=== PATIENT | female | born 1995 | race Caucasian/White ===

== ENCOUNTER 2017-06-15 13:16 | Day surgery (SDC) | payer OTHER ==
[~2017-06-15 13:16] MED LIST: CEFAZOLIN 2 GM/D5W RTU 2 GM/50 ML RTUPB IV PRN; DEXAMETHASONE SOD PHOSPHATE INJ 4 MG/1 ML VIAL ONE; LACTATED RINGERS 1000 ML IV PRN; LIDOCAINE 0.5% INJ-PF (5 MG/ML) 50 ML SDV SUBCUT PRN; LIDOCAINE 2% INJ-PF (20 MG/ML) 2 ML AMPUL ONE; ONDANSETRON HCL INJ/PF 4 MG/2 ML SDV ONE; SUCCINYLCHOLINE CHLORIDE INJ 200 MG/10 ML VIAL ONE
[2017-06-15] MEDS ORDERED: PROPOFOL INJ 200 MG/20 ML VIAL IV ONE (14:52)
[2017-06-15] MEDS ORDERED: MIDAZOLAM 2 MG/2 ML INJ ONE (14:52)
[2017-06-15] MEDS ORDERED: FENTANYL CITRATE INJ/PF 100 MCG/2 ML AMPUL ONE ×2 (14:52→17:56)
[2017-06-15] MEDS ORDERED: IBUPROFEN INJ 800 MG/8 ML VIAL IV ONE (14:53)
[2017-06-15] MEDS ORDERED: ACETAMINOPHEN 100 ML IV ONE (14:53)
[2017-06-15] MEDS ORDERED: MORPHINE SULFATE 10 MG/ML INJ IV PRN (15:49)
[2017-06-15] MEDS ORDERED: DIPHENHYDRAMINE HCL 50 MG/ML VIAL IV PRN (15:49)
[2017-06-15] MEDS ORDERED: PROMETHAZINE HCL INJ 25 MG/1 ML VIAL IV PRN (15:49)
[2017-06-15] MEDS ORDERED: MEPERIDINE HCL/PF INJ 25 MG/1 ML DISP.SYRIN IV PRN (15:49)
[2017-06-15] MEDS ORDERED: FENTANYL CITRATE INJ/PF 100 MCG/2 ML AMPUL IV PRN ×3 (15:49)
[2017-06-15] MEDS ORDERED: HYDROMORPHONE HCL INJ/PF 2 MG/ML AMPULE ONE (16:09)
[2017-06-15] MEDS ORDERED: BUPIVACAINE HCL 0.5 % INJ/PF 30 ML SDV ONE (17:17)
[2017-06-15] MEDS ORDERED: OXYCODONE-ACETAMINOPHEN 5-325 MG TABLET PO PRN (17:23)
[2017-06-15] MEDS ORDERED: ONDANSETRON HCL INJ/PF 4 MG/2 ML SDV IV PRN (17:23)
[2017-06-15] MEDS ORDERED: HYDROMORPHONE HCL INJ/PF 2 MG/ML AMPULE IV PRN (17:23)
--- NOTE | 2017-06-15 17:23 | PDOC DISCHARGE SUMMARY ---
Discharge Summary (SDC) - Discharge Final Diagnosis: Right elbow ulnar collateral ligament tear Date of Surgery: 06/15/17 Discharge Date: 06/15/17 Condition: Good Treatment or Instructions: Schedule Follow Up w/ Dr. Jan Aguiar @ [facility] for Surgery to be seen in 10-14 days or as scheduled [place]: [place]: [place]: Ice and elevate Keep splint clean/dry/intact. If your fingers become numb please unwrap the Vipul wrap but leave the splint in place, if the sensation does not return within 30 minutes please return to the emergency department. May begin finger range of motion attempting to make full fist. Please use ibuprofen (Motrin or Advil) 600-800 mg every 8 hours as needed for pain or fever. You may also use acetaminophen (Tylenol) 1000 mg every 4-6 hours as needed for pain or fever. Please be aware that many medications contain acetaminophen, do not exceed a total of 1000 mg of acetaminophen every 6 hours. If ibuprofen and acetaminophen are not sufficient for your pain you may take the Percocet. Please be aware that the Percocet does contain Tylenol. Stool softener of choice when on pain medication. Prescriptions: Oxycodone HCl/Acetaminophen [Percocet 7.5-325 mg Tablet] 1 - 2 tab PO ASDIR PRN #50 tab PRN Reason: Referrals: TRINA MCCLURE MD [Primary Care Provider] - Discharge Diet: As Tolerated Respiratory Treatments at Home: Deep Breathing/Coughing, Incentive Spirometer Discharge Activity: No Lifting Over 10 Pounds, No Lifting/Push/Pulling Report the Following to Your Physician Immediately: Fever over 101 Degrees, Unusual Bleeding, Redness, Swelling, Warmth, Increased Soreness
--- NOTE | 2017-06-15 17:51 | RADIOLOGY REPORT (SQ) ---
EXAM DESCRIPTION: NO CHG FLUORO; ELBOW LEFT AP/LATERAL COMPLETED DATE/TIME: 06/15/2017 5:36 pm REASON FOR STUDY: ORIF LEFT ELBOW COMPARISON: None. FLUOROSCOPY TIME: 5 seconds 2 Images saved to PACS LIMITATIONS: None. PROCEDURE: Refer to operative report. FINDINGS: Refer to operative report. IMPRESSION: Refer to operative report COMMENT: PQRS 6045F: Fluoroscopy time of the procedure is documented in the report. TECHNICAL DOCUMENTATION: JOB ID: [id number] [employer]- All Rights Reserved
--- NOTE | 2017-06-15 17:51 | RADIOLOGY REPORT (SQ) ---
EXAM DESCRIPTION: NO CHG FLUORO; ELBOW LEFT AP/LATERAL COMPLETED DATE/TIME: 06/15/2017 5:36 pm REASON FOR STUDY: ORIF LEFT ELBOW COMPARISON: None. FLUOROSCOPY TIME: 5 seconds 2 Images saved to PACS LIMITATIONS: None. PROCEDURE: Refer to operative report. FINDINGS: Refer to operative report. IMPRESSION: Refer to operative report COMMENT: PQRS 6045F: Fluoroscopy time of the procedure is documented in the report. TECHNICAL DOCUMENTATION: JOB ID: [id number] [employer]- All Rights Reserved
[2017-06-15] MEDS ORDERED: MEPERIDINE HCL/PF INJ 25 MG/1 ML DISP.SYRIN ONE (17:56)
--- NOTE | 2017-06-15 17:58 | Operative Report ---
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 Patient attempted conservative measures including anti- inflammatories, activity modification and therapy but continued to have discomfort. Patient's MRI demonstrated ulnar collateral ligament tear. At that point we discussed treatment options including operative versus nonoperative intervention. Risks and benefits were explained and verbalized understanding consented for the procedure. Procedure In Detail: Patient was seen and evaluated in the preoperative holding area. The RIGHT upper extremity was initialized and marked. Patient received 2g of Ancef IV for bacterial prophylaxis. Patient was taken back to the operative room where transferred to the operative table and placed under general anesthesia. Once they were adequately anesthetized a nonsterile tourniquet was placed on the upper extremity. A surgical team debriefing was performed ensuring all instrumentation was available, the surgical procedure was discussed with possible concerns reviewed. The upper extremity was prepped with ChloraPrep and draped in a sterile fashion. A timeout was done identifying correct patient, procedure and extremity everyone in attendance agree with this and verbalized no concerns. The extremity was exsanguinated the tourniquet was inflated to 250 mmHg. Skin incision was made just along the medial medial epicondyle. Blunt dissection was performed. Branches of the medial antebrachial cutaneous nerve were identified and retracted. I then identified the ulnar nerve proximally adjacent to the intramuscular septum neuro lysis was performed including release of Hassan's ligament and the fascia of the FCU. With elbow flexion extension there was no evidence of ulnar nerve subluxation. A vessel loop was placed around the ulnar nerve for protection throughout the entirety of the case. Utilizing a muscle splitting approach the fascia of the flexor pronator mass was split. Blunt dissection was performed through the muscle down to the remnant of the ulnar collateral ligament. There was notable laxity of the ulnar collateral ligament and thus decision was made to proceed with reconstruction with palmaris autograft. 2 transverse skin incisions were made blunt dissection was performed in the distal and proximal aspect of the palmaris longus at the muscular tendinous junction was identified. The graft was then cut and released. On the back table my shipping and receiving assistant prepared the graft with a #2 Fiber Loop. Utilizing the [employer] guide tunnels the sublime tubercle was identified into converging tunnels were drilled and sutures were passed. I then turned my attention to the medial epicondyle. A 4.5 mm hole was placed at the [place] insertion of the medial collateral ligament at the medial epicondyle. Utilizing the tunnel guide to converging tunnels are placed one posterior and one anteriorly which was 2 mm. Sutures were once again passed through the medial epicondyle. Once this was complete the palmaris longus was passed through the sublime tubercle and into the medial epicondyle. The anterior limb was tensioned and then the second limb was measured to be 15 mm and cut appropriately and a #2 FiberWire Loop placed. The sutures were then shuttled as well while my shipping and receiving assistant held the elbow at 30 of flexion and varus stress the suture limbs were tied over a bone tunnel. Elbow was placed through range of motion was good tension of the tunnel but to further provide stability a forked tip 4.75 mm interference screw was placed to be epicondyle providing further security. There is good tension of the graft to further provide tension the remanent ulnar collateral ligament was secured to the graft with 2- 0 Ethibond. C-arm fluoroscopy was then obtained demonstrating good stability of the ulnohumeral joint with stress. The wound was copiously irrigated with normal saline. Any peripheral bleeding was coagulated bipolar cautery. Once again the ulnar nerve was inspected proximally and distally to ensure there is no evidence of compression or impingement. There is no evidence of subluxation with range of motion. The flexor pronator fascia was then closed with 2-0 Vicryl suture. Subcutaneous tissues were closed with interrupted 4-0 Monocryl. Skin was closed with running 4-0 Monocryl reinforced with Dermabond and Steri-Strips. 20 cc of 0.5% Marcaine without epinephrine was injected for postoperative pain control. Patient was placed in a posterior splint maintaining 30 of flexion. Sponge counts, instrument counts, needle counts counts were correct. Patient was then awoken from anesthesia. Transferred from the operating room table to the operating room stretcher. There was no intraoperative complications patient tolerated procedure well stable to PACU. Postoperative plan: Patient will begin occupational therapy postoperatively. She will placed in a hinged elbow brace at follow-up visit begin range of motion 30-90 increasing approximately 10 per week and discontinue elbow brace at 6 weeks postoperatively. Patient anticipated return to play 9-12 months.
[2017-06-15 19:54] VITALS: BP 126/68
== END 2017-06-15 20:00 | disposition home or self-care (01) ==
LOC: OROUT 13:16
PROVIDERS: ATTEND Orthopaedic Surgery
PROC: 0MU407Z Supplement Left Elbow Bursa and Ligament with Autologous Tissue Substitute, Open Approach (ICD-10-PCS; principal; 2017-06-15 14:15)
DX: S53.442A Ulnar collateral ligament sprain of left elbow, initial encounter (principal); W19.XXXA Unspecified fall, initial encounter; F17.210 Nicotine dependence, cigarettes, uncomplicated
CPT/HCPCS: 81025; 73070; 24346; J2250; J1100; J3010; J2175; J1170; J0330; J2405; J2704; J0690; J0131; J1741; J3490; 01740